=== PATIENT | female | born 1935 | race Caucasian/White ===

== ENCOUNTER 2020-06-14 20:54 | Inpatient (IN) | payer OTHER ==
[~2020-06-14] VITALS: Ht 165.1 cm; Wt 44.9 kg
--- NOTE | 2020-06-14 21:00 | NUR ---
PATIENT BIB PRIVATE AMBULANCE FROM [facility] ON 5150 HOLD FOR DTS. PATIENT UPON ARRIVAL A/OX3. DENIES ANY COMPLAINT.
[2020-06-14] MEDS ORDERED: PANT40TA2 PO (21:15)
[2020-06-14] MEDS ORDERED: LORA0.5T PO (21:15)
[2020-06-14] MEDS ORDERED: DIAZ5TAB4 PO (21:15)
[2020-06-14] MEDS ORDERED: DICY10CA13 PO (21:15)
[2020-06-14] MEDS ORDERED: GABA-532 PO (21:15)
[2020-06-14] MEDS ORDERED: MELA1TAB53 PO (21:15)
[2020-06-14] MEDS ORDERED: OLAN5TAB30 PO (21:15)
--- NOTE | 2020-06-14 23:00 | NUR ---
Transfered to MHU via wheelchair with MHU staff member.
[2020-06-14 23:15] VITALS: BP 127/78
[2020-06-14] MEDS ORDERED: MELATONIN 3 MG TABLET PO SCH (23:15)
[2020-06-14] MEDS ORDERED: ZOLPIDEM 5 MG TABLET PO PRN (23:30)
[2020-06-14] MEDS ORDERED: LORAZEPAM 0.5 MG TABLET PO PRN (23:30)
[2020-06-14] MEDS ORDERED: MAGNESIUM HYDROXIDE 30 ML LIQUID UDC PO PRN (23:30)
[2020-06-14] MEDS ORDERED: MAG HYDROX/AL HYDROX/SIMETH 30 ML LIQUID UDC PO PRN (23:30)
--- NOTE | 2020-06-14 23:30 | NUR ---
GPS ADMISSION NOTE; Patient is a 84 year old female, Patient admitted on 5150 as DTS. As per hold the patient called 911 because Patient stated i took 25 pills of ativan because i was in pain.also patient left note stated i want end of my life. Upon face to face evaluation, patient is alert and oriented x3. Patient suffers from chronic abdominal pain due to her medical conditions. Her appearance is unkept and unclean. Shower offered and patient refused. patient was oriented to the environment, provided a Patient Rights Handbook and the Advisement. VS stable and no acute distress at this time. patient has allergies to ondansetron. patient is denying SI at this time. SI precautions in place at this time ,to ensure safety, continue monitoring for safety via q 15 minuted head check.
--- NOTE | 2020-06-15 06:12 | NUR ---
GPS: Remain calm and cooperative with care. denies SI at this time. no other behavior issue noted patient is resting in bed comfortably. slept 5 hrs through the night.
[2020-06-15] MEDS: PANTOPRAZOLE SODIUM 40 MG TABLET.DR PO SCH (06:20)
[2020-06-15 07:30] VITALS: BP 112/67
[2020-06-15 08:12] LABS: BILIRUBIN,TOTAL 0.5 mg/dL (0.2-1.0); CREATININE 1.3 mg/dL (0.6-1.3); POTASSIUM 4.7 mmol/L (3.5-5.1); TOTAL PROTEIN, SERUM 6.8 g/dL (6.4-8.2)
[2020-06-15] MEDS: GABAPENTIN 100 MG CAPSULE PO SCH ×4 (08:12→20:30)
[2020-06-15 08:15] LABS: BASOPHILS # (AUTO) 0.1 K/uL (0.0-8.0); BASOPHILS % (AUTO) 1.2 % (0.0-2.0); EOSINOPHILS # (AUTO) 0.1 K/uL (0.0-0.7); EOSINOPHILS % (AUTO) 1.5 % (0.0-7.0); HEMATOCRIT 41.6 % (31.2-41.9); HEMOGLOBIN 13.6 g/dL (10.9-14.3); LYMPHOCYTES # (AUTO) 1.7 K/uL (20.0-40.0); LYMPHOCYTES % (AUTO) 26.2 % (20.5-51.5); MEAN CORPUSCULAR HEMOGLOBIN 30.3 uug (24.7-32.8); MEAN CORPUSCULAR HGB CONC 33 g/dL (32.3-35.6); MEAN CORPUSCULAR VOLUME 92.8 fL (75.5-95.3); MONOCYTES # (AUTO) 0.5 K/uL (2.0-10.0); MONOCYTES % (AUTO) 8.5 % (0.0-11.0); NEUTROPHILS % (AUTO) 62.6 % (38.5-71.5); PLATELET COUNT (AUTO) 205 K/uL (179-408); RED BLOOD CELL COUNT(AUTO) 4.49 MIL/uL (3.63-4.92); WHITE BLOOD COUNT (AUTO) 6.4 K/uL (3.8-11.8)
[2020-06-15 08:23] LABS: THYROID STIMULATING HORMONE 4.09 mIU/mL (0.358-3.740)
--- NOTE | 2020-06-15 08:26 | NUR ---
Firearms Report: Charge Rn completed and submitted a [employer] firearms report for 5150 grave disability certification. A copy of report has been placed in patient chart.
[2020-06-15] MEDS: DICYCLOMINE HCL 10 MG CAPSULE PO SCH ×4 (08:42→20:30)
[2020-06-15 09:47] LABS: MAGNESIUM 2.1 mg/dL (1.8-2.4); PHOSPHOROUS 4.2 mg/dL (2.5-4.9)
--- NOTE | 2020-06-15 09:59 | NUR ---
NORMAN Initial Discharge Plan: Patient currently resides at home [address] [place] [address] lives with Dalton ([phone]). Patient's and daughter, Maribel ([phone]) are both involved in the patient's care. Patient would like to return home upon discharge. NORMAN will continue to work with patient, family, and MD to ensure a safe and proper discharge plan.
--- NOTE | 2020-06-15 10:18 | NUR ---
NORMAN LEY NOTE: NORMAN left a voicemail for child welfare caseworker Catrina Serna (ph: [phone]) and left clinical information, also requested authorization number. Waiting for a call back. Addendum: 06/15/20 at 1028 by FELTON BASURTO Received a call back from Catrina Serna, Patient is approved for 6 days with review due on Saturday06/20/20. Auth #[id number]
--- NOTE | 2020-06-15 10:25 | NUR ---
NORMAN Family Contact: SW left a voicemail for patient's Dalton ([phone]) to discuss treatment and discharge plan.
[2020-06-15 16:00] VITALS: BP 134/96
--- NOTE | 2020-06-15 18:35 | NUR ---
patient will be NPO after MN for Ct of abdominal with contrast, will endorse to next shift nurse.
[2020-06-15] MEDS: SERTRALINE HCL 50 MG TABLET PO SCH (20:30)
[2020-06-15 20:44] VITALS: BP 147/57
--- NOTE | 2020-06-15 21:01 | NUR ---
PATIENT RECEIVED IN HALLWAY. PATIENT IS ALERT AND ORIENTED X3.PATIENT COMPLAINT WITH MEDICATION. PATIENT DENIES SI PATIENT ENCOURAGED TO ATTEND GROUP AND EXPRESS HER FEELINGS. SAFE ENVIRONMENT PROVIDED, FREQUENT ROUNDING. BED IN LOWEST POSITION, BED LOCKED. PATIENT IS AWARE THAT SHE IS NPO AFTER MIDNIGHT FOR CT OF ABDOMINAL WITH CONTRAST WILL ENDORSE TO DAYSHIFT.
[2020-06-16] MEDS: PANTOPRAZOLE SODIUM 40 MG TABLET.DR PO SCH ×2 (06:18→12:21)
[2020-06-16 07:30] VITALS: BP 98/60
[2020-06-16] MEDS ORDERED: IV NORMAL SALINE 250 ML IV ONE (07:49)
[2020-06-16] MEDS ORDERED: SWABABLE VALVE TRANSFER SET EA MC ONE (07:49)
[2020-06-16] MEDS ORDERED: IOHEXOL 300MG/ML 100 ML INFUS..BTL ONE (07:49)
[2020-06-16] MEDS: DICYCLOMINE HCL 10 MG CAPSULE PO SCH ×4 (08:09→20:35)
[2020-06-16] MEDS: GABAPENTIN 100 MG CAPSULE PO SCH ×4 (08:09→20:36)
--- NOTE | 2020-06-16 08:10 | NUR ---
Gps/Cotton Bag Clipper. Patient complaining of increased abdominal pain requesting her routine gabapentine, called CT time for CT scan w/c was originally scheduled at 0800 . Patient was well informed of her CT of abdomen, pt. was kept NPO after MN . Saline lock # 22 inserted to her left wrist area. Consent for abdominal CT with contrast done.
--- NOTE | 2020-06-16 08:34 | NUR ---
Gps/Associate Professor Of Anthropology- Patient's daughter Maribel Tinoco called requesting Dr De Jesus to call er @ [phone], also information obtained patient's Psychiatrist Dr Ascencio for 10 years ([phone])
--- NOTE | 2020-06-16 08:40 | NUR ---
Gps/Machine Striper- To CT scan via wheel chair
--- NOTE | 2020-06-16 09:30 | NUR ---
SW Contact: NORMAN received a voicemail from Tio ([phone]) patient's social work job titles. Called back and left a voicemail for a return call.
[2020-06-16] MEDS: ACETAMINOPHEN 325 MG TABLET PO PRN ×2 (10:11→17:32)
--- NOTE | 2020-06-16 10:23 | NUR ---
Gps/Personal Finance Instructor- Saline lock to left wrist was dc'd, folded gauze dressing applied
--- NOTE | 2020-06-16 12:33 | NUR ---
Gps/Sweetbread Trimmer- Daughter Maribel was in and brought [employer] Directive, filed in pt's chart
--- NOTE | 2020-06-16 13:47 | NUR ---
NORMAN Family Contact: NORMAN spoke with patient's daughter Maribel ([phone]) and discussed the patient's hearing process scheduled for tomorrow.
--- NOTE | 2020-06-16 15:05 | NUR ---
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 Continue to monitor behavior Instructed to stay in her group therapy, and participate. Noted patient interacting with her peers.
[2020-06-16 15:27] VITALS: BP 123/73
--- NOTE | 2020-06-16 17:45 | NUR ---
Gps/Skills Trainer- Patient calmer, this pm, stayed in her group therapy, continue to verbalized needs and feelings
[2020-06-16] MEDS: SERTRALINE HCL 50 MG TABLET PO SCH (20:36)
--- NOTE | 2020-06-16 20:46 | NUR ---
PATIENT RECEIVED IN HALLWAY. PATIENT IS ALERT AND ORIENTED X3.PATIENT COMPLAINT WITH MEDICATION. PATIENT REFUSED LOVENOX, EXPLAINED THE IMPORTANCE OF MEDICATION CONTINUES TO REFUSE."NO I DON'T NEED TO TAKE THAT."PATIENT DENIES SI PATIENT ENCOURAGED TO ATTEND GROUP AND EXPRESS HER FEELINGS. SAFE ENVIRONMENT PROVIDED, FREQUENT ROUNDING. BED IN LOWEST POSITION, BED LOCKED.
[2020-06-16] MEDS ORDERED: ENOXAPARIN SODIUM 30 MG/0.3 ML DISP.SYRIN SQ SCH (21:00)
[2020-06-16 21:38] VITALS: BP 126/75
[2020-06-17] MEDS: PANTOPRAZOLE SODIUM 40 MG TABLET.DR PO SCH (06:18)
[2020-06-17 07:30] VITALS: BP 138/73
[2020-06-17 07:47] LABS: BASOPHILS # (AUTO) 0.1 K/uL (0.0-8.0); BASOPHILS % (AUTO) 1.2 % (0.0-2.0); EOSINOPHILS # (AUTO) 0.1 K/uL (0.0-0.7); EOSINOPHILS % (AUTO) 2.1 % (0.0-7.0); HEMATOCRIT 41.5 % (31.2-41.9); HEMOGLOBIN 13.8 g/dL (10.9-14.3); LYMPHOCYTES # (AUTO) 1.3 K/uL (20.0-40.0); LYMPHOCYTES % (AUTO) 21.9 % (20.5-51.5); MEAN CORPUSCULAR HEMOGLOBIN 30.5 uug (24.7-32.8); MEAN CORPUSCULAR HGB CONC 33 g/dL (32.3-35.6); MEAN CORPUSCULAR VOLUME 91.3 fL (75.5-95.3); MONOCYTES # (AUTO) 0.6 K/uL (2.0-10.0); MONOCYTES % (AUTO) 9.6 % (0.0-11.0); NEUTROPHILS % (AUTO) 65.2 % (38.5-71.5); PLATELET COUNT (AUTO) 205 K/uL (179-408); RED BLOOD CELL COUNT(AUTO) 4.54 MIL/uL (3.63-4.92); WHITE BLOOD COUNT (AUTO) 6.1 K/uL (3.8-11.8)
[2020-06-17 08:01] LABS: ALANINE AMINOTRANSFERASE 35 U/L (14-59); ALKALINE PHOSPHATASE 94 U/L (50-136); ASPARTATE AMINOTRANSFERASE 39 U/L (15-37); BILIRUBIN,TOTAL 0.5 mg/dL (0.2-1.0); CARBON DIOXIDE 25 mmol/L (21-32); CHLORIDE 101 mmol/L (98-107); CREATININE 1.7 mg/dL (0.6-1.3); GLUCOSE 93 mg/dL (74-106); LACTATE DEHYDROGENASE 165 U/L (81-234); POTASSIUM 4.2 mmol/L (3.5-5.1); TOTAL PROTEIN, SERUM 7.1 g/dL (6.4-8.2); UREA NITROGEN, BLOOD 28 mg/dL (7-18)
--- NOTE | 2020-06-17 08:11 | NUR ---
Gps/Tube Lancer-Patient was informed about her test/procedure order for today(CT Angiogram) Abdomen/pelvis, ordered by Dr Lewis. Informed patient refused stated, " i had test after test , had done @ [facility] about 3 months ago, I want to refused this time," Patient also refused to have saline lock inserted.
[2020-06-17] MEDS: GABAPENTIN 100 MG CAPSULE PO SCH ×4 (08:52→20:03)
[2020-06-17] MEDS: DICYCLOMINE HCL 10 MG CAPSULE PO SCH ×4 (08:52→20:03)
--- NOTE | 2020-06-17 09:02 | NUR ---
Gps/Shafting Cleaner- Patient ate breakfast, still refusing to have CT angio done .Patient talked to patient's right Advocate.
--- NOTE | 2020-06-17 11:08 | NUR ---
Gps/Transfer Car Operator- Dr Lewis in to see, and talked to patient, still refusing to have her CTA done Per Dr Lewis, offer patient to take small freq. meals . Patient eating small portion of her meals
--- NOTE | 2020-06-17 11:55 | NUR ---
NORMAN PC Hearing: Patient had probable cause hearing today and it was upheld for danger to self.
[2020-06-17] MEDS: ACETAMINOPHEN 325 MG TABLET PO PRN ×2 (13:34→18:15)
[2020-06-17 13:50] LABS: *BILIRUBIN,URIN NEGATIVE (NEGATIVE); *BLOOD, URINE NEGATIVE (NEGATIVE); *CLARITY,URINE CLEAR (CLEAR); *COLOR,URINE YELLOW (YELLOW); *KETONES,URINE TRACE (NEGATIVE); *UROBILINOGEN,URINE 0.2 E.U./dl (NORMAL); LEUKOCYTE ESTERASE ,URINE NEGATIVE (NEGATIVE); NITRITE, URINE NEGATIVE (NEGATIVE); UGLUCOSE NEGATIVE (NEGATIVE)
[2020-06-17 13:54] LABS: *CREATININE,URINE 86.9 mg/dL (30-125); *URINE TOTAL PROTEIN RANDOM 43.4 mg/dL (<150/24HR)
[2020-06-17 16:33] VITALS: BP 156/94
[2020-06-17 18:39] LABS: BACTERIA,URINE FEW /HPF (NONE SEEN); RBC,URINE 0-3 /HPF (0-3); SQUAMOUS EPITHELIAL CELL,UR FEW /HPF (NONE SEEN); WBC,URINE 0-3 /HPF (0-3)
[2020-06-17] MEDS: SERTRALINE HCL 50 MG TABLET PO SCH (20:04)
[2020-06-17 20:16] VITALS: BP 148/68
[2020-06-18] MEDS: ACETAMINOPHEN 325 MG TABLET PO PRN ×2 (02:22→12:10)
[2020-06-18] MEDS: LORAZEPAM 0.5 MG TABLET PO PRN ×2 (06:13→15:25)
[2020-06-18] MEDS: PANTOPRAZOLE SODIUM 40 MG TABLET.DR PO SCH (06:17)
--- NOTE | 2020-06-18 06:23 | NUR ---
GPS: Remain calm and cooperative most of the night. c/o anxiety this morning. ativan 1 mg po given. self care.ambulatory. denies SI at this time. plesant upon approach. compliant with am po meds. slept 6 hrs through the night.continue plan of care
[2020-06-18 07:30] VITALS: BP 141/93
[2020-06-18] MEDS: DICYCLOMINE HCL 10 MG CAPSULE PO SCH ×4 (08:35→20:28)
[2020-06-18] MEDS: GABAPENTIN 100 MG CAPSULE PO SCH ×4 (08:35→20:28)
[2020-06-18] MEDS: HYDROCODONE/APAP 5-325MG TABLET PO PRN ×2 (12:59→18:19)
[2020-06-18] MEDS: FLUTICASONE/VILANTEROL 1 EACH BLST.W.DEV INH SCH (13:12)
[2020-06-18 15:03] VITALS: BP 99/53
[2020-06-18 19:53] VITALS: BP 101/54
[2020-06-18] MEDS: SERTRALINE HCL 50 MG TABLET PO SCH (20:32)
--- NOTE | 2020-06-18 20:32 | NUR ---
patient refused zoloft 25 mg po HS dose.
--- NOTE | 2020-06-19 05:47 | NUR ---
GPS: Remain calm and cooperative with medication and care. self care.ambulatory. Denies SI at this time. pleasant upon approach. no agitation noted. resting in bed comfortably. no c/o pain or any discomfort at this time. slept 7.15 hrs through the night. continue plan of care
[2020-06-19] MEDS: PANTOPRAZOLE SODIUM 40 MG TABLET.DR PO SCH (06:05)
[2020-06-19 07:30] VITALS: BP 122/66
[2020-06-19 07:51] LABS: BASOPHILS # (AUTO) 0.1 K/uL (0.0-8.0); EOSINOPHILS # (AUTO) 0.2 K/uL (0.0-0.7); EOSINOPHILS % (AUTO) 2.6 % (0.0-7.0); HEMOGLOBIN 12.3 g/dL (10.9-14.3); LYMPHOCYTES # (AUTO) 1.9 K/uL (20.0-40.0); LYMPHOCYTES % (AUTO) 29.8 % (20.5-51.5); MEAN CORPUSCULAR HEMOGLOBIN 30.7 uug (24.7-32.8); MEAN CORPUSCULAR HGB CONC 34 g/dL (32.3-35.6); MEAN CORPUSCULAR VOLUME 89.8 fL (75.5-95.3); MONOCYTES # (AUTO) 0.8 K/uL (2.0-10.0); MONOCYTES % (AUTO) 12.5 % (0.0-11.0); NEUTROPHILS # (AUTO) 3.4 K/uL (1.8-8.9); NEUTROPHILS % (AUTO) 54.1 % (38.5-71.5); PLATELET COUNT (AUTO) 224 K/uL (179-408); RED BLOOD CELL COUNT(AUTO) 4.01 MIL/uL (3.63-4.92); WHITE BLOOD COUNT (AUTO) 6.3 K/uL (3.8-11.8)
[2020-06-19 08:13] LABS: CARBON DIOXIDE 31 mmol/L (21-32); CHLORIDE 99 mmol/L (98-107); CREATININE 1.7 mg/dL (0.6-1.3); GLUCOSE 92 mg/dL (74-106); POTASSIUM 4.6 mmol/L (3.5-5.1); UREA NITROGEN, BLOOD 32 mg/dL (7-18)
[2020-06-19] MEDS: LORAZEPAM 0.5 MG TABLET PO PRN ×2 (08:58→19:40)
[2020-06-19] MEDS: GABAPENTIN 100 MG CAPSULE PO SCH ×4 (09:09→20:24)
[2020-06-19] MEDS: DICYCLOMINE HCL 10 MG CAPSULE PO SCH ×4 (09:09→20:24)
[2020-06-19] MEDS: FLUTICASONE/VILANTEROL 1 EACH BLST.W.DEV INH SCH (09:10)
[2020-06-19] MEDS: HYDROCODONE/APAP 5-325MG TABLET PO PRN (10:19)
[2020-06-19 15:14] VITALS: BP 113/67
[2020-06-19 20:08] VITALS: BP 111/66
[2020-06-19] MEDS: SERTRALINE HCL 50 MG TABLET PO SCH ×2 (20:24→20:30)
--- NOTE | 2020-06-20 01:13 | NUR ---
Received patient in hallway asking for Ativan. Patient appeared anxious and worried. Patient with multiple requests and is worried about her belongings in the locker. This administrative underwriter provided reassurance and a PRN medication. Patient did however , refuse to take the Zoloft and stated " I can not take that blue pill because it makes my mouth on fire. " When asked if she notified anybody about it, patient said " I forgot". Bakery Helper will pass information on to the doctor. No acute distress noted. Continuing to monitor patient for pain and safety. Patient denies SI at this time. Frequent rounding being done.
--- NOTE | 2020-06-20 05:37 | NUR ---
Patient slept 7.30 hours last night. Up early with anxiety and worrying about the days events. Commercial Counsel reassured patient and provided active listening. Shower was offered but the patient refused at this time. No acute issues noted. Continuing to monitor for safety, pain and assistance given when needed.
[2020-06-20] MEDS: PANTOPRAZOLE SODIUM 40 MG TABLET.DR PO SCH (06:26)
[2020-06-20 07:30] VITALS: BP 129/74
[2020-06-20] MEDS: GABAPENTIN 100 MG CAPSULE PO SCH ×4 (08:46→20:17)
[2020-06-20] MEDS: DICYCLOMINE HCL 10 MG CAPSULE PO SCH ×4 (08:46→20:17)
[2020-06-20] MEDS: FLUTICASONE/VILANTEROL 1 EACH BLST.W.DEV INH SCH (08:54)
[2020-06-20] MEDS: SERTRALINE HCL 50 MG TABLET PO SCH (09:14)
--- NOTE | 2020-06-20 09:39 | NUR ---
UR NOTE: NORMAN called case resolution specialist Catrina Serna (ph: [phone]) and left a voicemail message stating that the pt is to be discharged the following day and if she would still prefer a live clinical to be conducted then the SW stated that she is available around 12pm today.
--- NOTE | 2020-06-20 09:49 | NUR ---
Family Contact: SW spoke with patient's daughter Maribel ([phone]) and informed her that the pt is going to be discharged the next day and she stated that she would arrive around 11am to pick the pt up.
--- NOTE | 2020-06-20 09:59 | NUR ---
UR Note: Kailashtmarcus case aide Catrina Kareem (ph: [phone]) called the SW back and stated that a live review is not needed if the pt is being discharged the next day. SW stated that she will leave a discharge clinical on her voicemail the day of discharge.
--- NOTE | 2020-06-20 10:48 | NUR ---
Primary Care Physician Contact: NORMAN called the office of Dr. Hines ([phone]) and made an appointment for the pt to be seen post hospitalization on 06/23/20 at 4pm via telehealth. NORMAN faxed clinical notes to the office to the fax number: [phone].
--- NOTE | 2020-06-20 10:50 | NUR ---
Outpatient Psychiatrist Contact: NORMAN called the office of Dr. Ascencio ([phone]) and made an appointment for the pt to be seen post hospitalization on 06/27/20 at 12:30pm. NORMAN faxed clinical notes to the office to the fax number: [phone].
[2020-06-20] MEDS: ENSURE ENLIVE (VAN) 240 ML LIQUID PO SCH ×2 (12:20→17:15)
[2020-06-20] MEDS: LORAZEPAM 0.5 MG TABLET PO PRN ×2 (12:31→20:18)
[2020-06-20] MEDS ORDERED: LORAZEPAM 2 MG/1 ML VIAL IM ONE (14:15)
[2020-06-20] MEDS ORDERED: OLANZAPINE 10 MG VIAL IM ONE (14:15)
[2020-06-20 15:45] VITALS: BP 111/44
[2020-06-20] MEDS: HYDROCODONE/APAP 5-325MG TABLET PO PRN (17:14)
[2020-06-20 20:00] VITALS: BP 110/53
--- NOTE | 2020-06-21 05:38 | NUR ---
Patient slept 6.30 hours. Up once during the night requesting a PRN medication for anxiety. Patient is going home this am and is happy about that. Restaurant Kitchen And Service Manager was able to engage in meaningful conversation and patient denied having SI. Continuing to monitor patient for safety and assist patient with any needs that may arise. No distress noted at this time.
[2020-06-21] MEDS: PANTOPRAZOLE SODIUM 40 MG TABLET.DR PO SCH (05:58)
[2020-06-21 07:30] VITALS: BP 146/74
[2020-06-21 07:44] LABS: BASOPHILS # (AUTO) 0.1 K/uL (0.0-8.0); EOSINOPHILS # (AUTO) 0.1 K/uL (0.0-0.7); EOSINOPHILS % (AUTO) 1.9 % (0.0-7.0); HEMATOCRIT 36.5 % (31.2-41.9); HEMOGLOBIN 12.7 g/dL (10.9-14.3); LYMPHOCYTES # (AUTO) 1.6 K/uL (20.0-40.0); LYMPHOCYTES % (AUTO) 26.6 % (20.5-51.5); MEAN CORPUSCULAR HEMOGLOBIN 31.4 uug (24.7-32.8); MEAN CORPUSCULAR HGB CONC 35 g/dL (32.3-35.6); MEAN CORPUSCULAR VOLUME 90.3 fL (75.5-95.3); MONOCYTES # (AUTO) 0.6 K/uL (2.0-10.0); MONOCYTES % (AUTO) 10.1 % (0.0-11.0); NEUTROPHILS # (AUTO) 3.7 K/uL (1.8-8.9); NEUTROPHILS % (AUTO) 60.4 % (38.5-71.5); PLATELET COUNT (AUTO) 232 K/uL (179-408); RED BLOOD CELL COUNT(AUTO) 4.04 MIL/uL (3.63-4.92); WHITE BLOOD COUNT (AUTO) 6.1 K/uL (3.8-11.8)
--- NOTE | 2020-06-21 08:15 | NUR ---
Discharge Note: Pt will be discharged to her home located at [address] [place], [place] [id number] where she lives with her Dalton Trujillo ([phone]). Pts daughter, Maribel ([phone]) is involved in her care and will picker machine operator the pt at 11AM. Upon discharge, the pt appears to be in a euthymic mood and presents with a calm affect. Pt appears to be alert and oriented x4 (time, place, self and situation). Pt denies both suicidal and homicidal ideation as well as auditory and visual hallucinations. Pt appears to be well groomed and appropriately dressed. Pt appears to be ambulatory with an unsteady gait. Pt will be under the care of her helpdesk analyst, Dr. Flora Lopez, located at [address] [place] [id number] ([phone]). Pt has an appointment for 06/23/20 at 4pm via telehealth. Pt will also follow up with her psychiatrist, Belkis Carlisle, located at [address] [address] ([phone]). Pt has an appointment at 06/27/20 at 12:30pm. The multidisciplinary exit care form was done, printed, signed, and given to the patient.
[2020-06-21] MEDS: GABAPENTIN 100 MG CAPSULE PO SCH (08:18)
[2020-06-21] MEDS: FLUTICASONE/VILANTEROL 1 EACH BLST.W.DEV INH SCH (08:18)
[2020-06-21] MEDS: ENSURE ENLIVE (VAN) 240 ML LIQUID PO SCH (08:18)
[2020-06-21] MEDS: SERTRALINE HCL 50 MG TABLET PO SCH (08:18)
[2020-06-21] MEDS: DICYCLOMINE HCL 10 MG CAPSULE PO SCH (08:18)
[2020-06-21] MEDS: HYDROCODONE/APAP 5-325MG TABLET PO PRN (09:38)
--- NOTE | 2020-06-21 11:15 | NUR ---
GPS: Nursing Notes: Discharge Notes: Patient is awake and responding to her name, cooperative with nursing care, compliant with he medications, following staff directions, A/Ox4, denies SI/HI, denies AH/VH, denies pain or discomfort at this time, compliant with her pain medication, denies SOB. Discharge home to her - Dalton Trujillo at [address] [address], picked up by her daughter/DPELYSE López , instructions and prescriptions given to patient and daughter/DPELYSE, Estevan Souza called [facility] at [address] [place] [address] for pain medication - [place]. Also, daughter/DPELYSE - Maribel informed of this, patient took all her belongings and valuable with her, transported home via private vehicle. Pt will be under the care of her oxidized finish plater, Dr. Flora Lopez, located at [address] [place] [address] ([phone]). Pt has an appointment for 06/23/20 at 4pm via telehealth. Pt will also follow up with her psychiatrist, Belkis Carlisle, located at [address], [place] [address] ([phone]). Pt has an appointment at 06/27/20 at 12:30pm.
--- NOTE | 2020-06-21 15:13 | NUR ---
UR NOTE: SW called casework supervisor Catrina Serna (ph: [phone]) and left a voicemail detailing the pts discharge clinical.
== END 2020-06-21 11:15 | disposition home or self-care (01) | DRG 882 ==
LOC: ER 20:54 → GPS 23:08
PROVIDERS: ADMIT Psychiatry & Neurology Psychiatry; ATTEND Student in an Organized Health Care Education/Training Program
DX: F43.25 Adjustment disorder with mixed disturbance of emotions and conduct (principal); N17.0 Acute kidney failure with tubular necrosis; I81 Portal vein thrombosis; K55.059 Acute (reversible) ischemia of intestine, part and extent unspecified; R45.851 Suicidal ideations; Z68.1 Body mass index [BMI] 19.9 or less, adult; E44.1 Mild protein-calorie malnutrition; Z85.72 Personal history of non-Hodgkin lymphomas; Z85.528 Personal history of other malignant neoplasm of kidney; Z92.21 Personal history of antineoplastic chemotherapy; K21.9 Gastro-esophageal reflux disease without esophagitis; J47.9 Bronchiectasis, uncomplicated; Z20.822 Contact with and (suspected) exposure to COVID-19; Z90.5 Acquired absence of kidney; E03.9 Hypothyroidism, unspecified; F41.9 Anxiety disorder, unspecified; F32.9 Major depressive disorder, single episode, unspecified; N13.9 Obstructive and reflux uropathy, unspecified; K76.9 Liver disease, unspecified; N28.9 Disorder of kidney and ureter, unspecified; J45.909 Unspecified asthma, uncomplicated; F29 Unspecified psychosis not due to a substance or known physiological condition; Z91.5 Personal history of self-harm
CPT/HCPCS: 36415; 71045; 83605; 83615; 83735; 84100; 84156; 84300; 84443; 85025; 85610; 85730; 93005; A4663; J1650; J7050; Q9967